=== PATIENT | female | born 1990 | race Caucasian/White ===

== ENCOUNTER 2020-03-27 06:08 | Emergency (ER) | payer MEDICAID ==
[~2020-03-27] VITALS: Ht 165.1 cm; Wt 83.9 kg
[2020-03-27 06:20] VITALS: BP_SYST 153
[2020-03-27 07:30] VITALS: BP_SYST 153
== END 2020-03-27 07:30 | disposition home or self-care (01) ==
LOC: SED 06:08
DX: H92.02 Otalgia, left ear (principal); G62.9 Polyneuropathy, unspecified; J45.909 Unspecified asthma, uncomplicated
CPT/HCPCS: 36415; 86403; 87081; 99283